=== PATIENT | female | born 1990 | race Caucasian/White ===

== ENCOUNTER 2022-01-30 15:49 | Outpatient (CLI) | payer BC, SELFPAY ==
[2022-01-30 17:03] LABS: NATERA MAILED SPECIMEN
== END 2022-01-30 23:59 | disposition home or self-care (01) ==
PROVIDERS: Referring Provider Obstetrics & Gynecology; Visit Provider Obstetrics & Gynecology
DX: Z13.79 Encounter for other screening for genetic and chromosomal anomalies (principal)
CPT/HCPCS: 36415

== ENCOUNTER 2022-04-09 09:39 | Day surgery (SDC) | payer BC, SELFPAY ==
[2022-04-08 09:14] LABS: Hematocrit 38.3 % (37-47); Hemoglobin 12.8 g/dL (12.0-15.0); Mean Corp Hgb Conc 33.4 g/dL (32-36); Mean Corpuscular Hgb 30.3 pg (27.0-32.0); Mean Corpuscular Volume 90.5 fL (81-99); Mean Platelet Vol. 10.3 fl (6.2-12.0); Platelet Count 196 K/mm3 (150-450); RBC Distribution Width CV 11.9 % (11.6-14.6); RBC Distribution Width SD 39.6 fl (35.1-43.9); Red Blood Count 4.23 M/mm3 (4.2-5.4); White Blood Count 4.7 K/mm3 (4.4-11.0)
--- NOTE | 2022-04-08 16:33 | HP.PCM_ITS ---
History and Physical Date of Admission: 04/09/22 MR#:[id number]: MONSTER MIRELESep #:[id number] Provider:Dr. Marysol Brewer, DOAge/Sex: 31/F [facility] Vital Signs 03/19/22 11:07 Height 5 ft 4 in Weight: 123 lb BMI 21.1 BP 107/67 Intake Visit Reasons: diag. lap. possible lysis of adhesions IUD insert Program Officer Required: No Is patient in pain?: No Allergies No Known Allergies Allergy (Verified 03/19/22 11:08) Medications elagolix 150 mg tablet 150 mg PO DAILY 01/11/22 [History Confirmed 03/19/22] ibuprofen 800 mg tablet 800 mg PO Q8H 7 Days #21 tab 03/19/22 [Rx Confirmed 03/19/22] oxycodone-acetaminophen 5 mg-325 mg tablet 1 tab PO Q4H PRN 3 Days #18 tab 03/19/22 [Rx Confirmed 03/19/22] Post menopausal: No Patient : No : No [facility] Medical History Genetic testing Surgical History S/P wisdom tooth extraction Family History Father Hypertension Grandmother Breast cancer great aunt Social History Smoking Status: Never smoker alcohol intake: never substance use type: does not use caffeine: Yes what type of physical activity do you participate in: none seatbelt use: always do you feel safe at home: Yes additional social history: - Yony JEFFERSON diag. lap. possible lysis of adhesions IUD insert Details: MONSTER MIRELES is a 31 year old who presents for follow up discussion about endometriosis treatment. She has her partner here today to go through some options. She is most interested in trying an IUD and undergoing a laparoscopic possible resection of endometriosis. Pregancy History 2 Elective abortions Hx Para 2 Spontaneous abortions Hx # Term Pregnancies Ectopic pregnancies Hx # Pregnancies Multiple births # of living children Past Pregnancies Del. Date Name GA/Weeks Outcome Route Bth Weight Infant Gen [facility] Unknown Jany Unknown Claudio ROS Const ROS Unobtainable: All systems reviewed & are unremarkable except as noted in H Resp Resp: Reports system reviewed and no additional complaints, except as documented; Denies cough GI GI: Reports as per HPI Psych Psych: Reports system reviewed and no additional complaints, except as documented Exam Const General: cooperative, healthy appearing, comfortable and no acute distress Resp Effort & Inspection: normal respiratory effort Skin General: no rashes or lesions noted Psych Appearance: grossly normal Speech and Movement: speech and movement normal Coding Level of Care Code Off vis,est,level 3 Diagnoses Genetic testing Z13.79 Menorrhagia N92.0 Endometriosis N80.9 Assessment and Plan Assessment and Plan (1) Genetic testing: Status: Acute Comment: Empower negative (2) Menorrhagia: Status: Acute (3) Endometriosis: Status: Acute Medications: New: oxycodone-acetaminophen 5-325 mg (Percocet) 1 TAB PO Q4H 3 days PRN 18 tabs 0RF pain N92.0, N80.9 Plan - Dr. Marysol Brewer DO: After discussing the patient's diagnosis and treatment plan options, patient wishes to proceed with surgical management. I have discussed with the patient the risks, benefits, and alternatives of the procedure which include but are not limited to risks of anesthesia, bleeding, infection, possible damage to bowel, bladder, or surrounding vasculature which could lead to additional surgery to evaluate any complications. Patient agrees to procedure and wishes to proceed. ACOG/uptodate references given for additional information regarding procedure. plan to proceed with diagnostic laparoscopy, possible fulguration of endometriosis or lysis of adhesions and placement of mirena IUD. Plan Details Other Medications: New: ibuprofen 800 mg PO Q8H 7 days 21 tabs 0RF UPDATE- I have seen the patient and performed any clinically relevant updates to the history and physical exam. Mraysol Brewer DO
[2022-04-09 10:03] VITALS: BP 103/65; PULSE 64; RESP 18; TEMP 37.1; O2SAT 100; BMI 20.8
[2022-04-09 10:07] LABS: Internal QC Validated? YES +Cl - CLEAR BKGD; Pregnancy, Urine Negative Negative
[2022-04-09] MEDS: Lactated Ringers 1,000 ML 100 ML IV (10:10)
--- NOTE | 2022-04-09 10:12 | PCM.DC ---
Discharge Instructions Diet Discharge Diet: No restrictions Activity Discharge Activity: Return to Normal Activity, May Not Drive (for two weeks or while taking narcotic pain medications.), May Shower and May Take a Tub Bath (in 7 days) May resume sexual activity in: 1 week Weight Bearing Status: Full weight bearing Dressing / Incision Call your doctor if you observe: Using more than 1 pad per hour, Shortness of breath, Chest pain and Uncontrolled pain Suture Line Care: Avoid Pulling/Pushing and Avoid Pinching/Bending Remove Dressing in: 1 week (if present) Cleanse incision/area with: Soap & Water and Keep Dressing Clean & Dry Follow Up Care Please Follow Up With: Marysol Brewer DO When: Call to make an appointment with your doctor for a follow up incision check in 1-2 weeks. Test Results: Test results from this visit will be discussed in further detail at your follow-up appointment, if applicable. Discharge Plan Admission Primary Reason for Your Visit: laparoscopy and insertion of IUD Attending Provider: Marysol Brewer Primary Care Provider: Care Physician,Meena Primary Instructions Patient Instructions: IUD, Endometriosis Lap Tx Dc Discharge Orders/Prescriptions Prescriptions: Continued Orilissa 150 mg tablet 150 mg PO DAILY RF: 0 multivitamin Tablet 1 tab PO DAILY RF: 0 loratadine [Claritin] 10 mg Tablet 10 mg PO DAILY PRN (Reason: ALLERGIES) RF: 0 Referrals / Follow Up: Care Physician,No Primary [Primary Care Provider] - Disposition Disposition (needs filled in before D/C Order can be placed): Home, Self Care
[2022-04-09] MEDS: Lactated Ringers 1,000 ML 15 ML IV (10:20)
[2022-04-09] MEDS: Bupivacaine Mpf 0.5% 30 ML VIAL (10:55)
--- NOTE | 2022-04-09 11:03 | OP.PCM_ITS ---
Problems Associated Problem List Diagnoses (1) Endometriosis: (2) Menorrhagia: Report of Operation Date of Procedure: 04/09/22 Pre-Operative Diagnosis: pelvic pain, suspected endometriosis Post-Operative Diagnosis: pelvic pain, suspected endometriosis Surgery/Procedure Performed:: diagnostic laparoscopy, placement of mirena intrauterine device Description of Surgical Findings:: normal uterus , tubes, and ovaries. normal cul-de-sac and uterine ligaments. no signs of endometriosis. normal appearing appendix Surgeon: Marysol Brewer bodywork therapist: Lauren Franco Type of Anesthesia: General Anesthesiologist: Gregg Hernandez Special Medications: none Specimen's removed: none Drains: none Estimated Blood Loss (mL): 3 cc Fluids Replaced: 700cc Description of Procedure: Patient was taken in the operating room and was placed under general anesthesia was prepped and draped in normal sterile fashion in the dorsal lithotomy position. Bladder was drained of clear urine and SCDs were on preoperatively. Uterus was sounded and a uterine manipulator was placed after dilating. Attention was then paid to the abdominal portion of the procedure. The umbilicus was injected with Marcaine and after a 5 mm incision was made a 5mm torcar was inserted under direct visualization using the 5 mm laparoscope. The Abdomen was insufflated with CO2 gas. The Uterus was well visualized and bilateral fallopian tubes and ovaries were identified and found to be free of endometriosis. The cul-de-sac and all uterine ligaments were found to be free of endometriosis. The Liver and upper abdomen were visualized notably within normal limits and no other gross abnormalities were seen in the abdomen. The Appendix was also noted to be normal. All instruments removed from the abdomen after gas was desufflated. Port sites were closed with 3-0 Monocryl Steri's and op sites were applied. The uterine manipulator was removed and the single toothed tenaculum was left inplace. The retroverted uterus was then measured to 8 cm. The mirena IUD was placed without difficulty. The strings were trimmed at 3 cm from the cervix. All instruments removed from the vagina and patient was awoken and taken recovery in stable condition. Complications none Admit VTE Documentation VTE Present on Admission: Yes VTE Mechan Device Prophylaxis: SCD's VTE Pharm Prophylaxis ordered?: No Reason prophylaxis not ordered:: Treatment Not Indicated Multi Select Codes Urinary/Genital Urinary/Genital CPT Codes: 31302 Insert IUD and Other Procedure See Report (diagnostic laparoscopy)
[2022-04-09 11:15] VITALS: BP 103/65; BP 112/91; PULSE 81; RESP 16; TEMP 36.1; O2SAT 100
[2022-04-09 11:30] VITALS: BP 103/65; BP 95/80; PULSE 76; RESP 16; O2SAT 100
--- NOTE | 2022-04-09 11:31 | SUR.PHASEI ---
Patient is tearful after surgery. 'I am just happy to be awake. This nurse provides emotional support.
[2022-04-09 11:45] VITALS: BP 103/65; BP 107/79; PULSE 66; RESP 16; O2SAT 99
[2022-04-09 11:54] VITALS: BP 103/65; BP 107/73; PULSE 60; RESP 16; TEMP 36.4; O2SAT 100
[2022-04-09 12:20] VITALS: BP 103/65
== END 2022-04-09 12:42 | disposition home or self-care (01) ==
LOC: SDC 09:41 → AC 09:43
PROVIDERS: Referring Provider Obstetrics & Gynecology; Visit Provider Obstetrics & Gynecology
PROC: (CPT 49320; principal; 2022-04-09 10:50)
DX: N92.0 Excessive and frequent menstruation with regular cycle (principal); Z20.822 Contact with and (suspected) exposure to COVID-19
CPT/HCPCS: 49320; 58300; 36415; 81025; 85027; 86850; 86900; 86901; 87426; C9803; J7120; J2405

== ENCOUNTER → 2022-06-28 | Outpatient (CLI) | payer BC, SELFPAY ==
--- NOTE | 2022-06-28 11:16 | US_ITS ---
INDICATION: IUD placement EXAMINATION: Ultrasound US Pelvis Non OB Complete With Transvaginal Imaging TECHNIQUE: Transabdominal and transvaginal pelvic ultrasound was performed. Grayscale, spectral waveform, and color flow Doppler evaluation of the adnexa. COMPARISON: None. FINDINGS: UTERUS: Anteverted. The uterus measures 7.9 x 6.0 x 4.7 cm. There is no uterine mass. The endometrial stripe measures 5 mm in AP diameter which is within normal limits. An IUD appears to be in appropriate position within the fundal endometrium. RIGHT OVARY: 3.7 x 2.5 x 2.4 cm. Non-enlarged, normal echogenicity. There is normal arterial inflow and venous outflow present in the right ovary. No adnexal mass. LEFT OVARY: 3.0 x 2.2 x 2.2 cm. Non-enlarged, normal echogenicity. There is normal arterial inflow and venous outflow present in the left ovary. No adnexal mass. FREE FLUID: Trace likely physiologic free fluid. US/Pelvic (Non ) IMPRESSION: Unremarkable pelvic ultrasound. Electronically Signed: Joaquim Leos, at 12:29 EDT ,
--- NOTE | 2022-06-28 11:16 | US_ITS ---
INDICATION: IUD placement EXAMINATION: Ultrasound US Pelvis Non OB Complete With Transvaginal Imaging TECHNIQUE: Transabdominal and transvaginal pelvic ultrasound was performed. Grayscale, spectral waveform, and color flow Doppler evaluation of the adnexa. COMPARISON: None. FINDINGS: UTERUS: Anteverted. The uterus measures 7.9 x 6.0 x 4.7 cm. There is no uterine mass. The endometrial stripe measures 5 mm in AP diameter which is within normal limits. An IUD appears to be in appropriate position within the fundal endometrium. RIGHT OVARY: 3.7 x 2.5 x 2.4 cm. Non-enlarged, normal echogenicity. There is normal arterial inflow and venous outflow present in the right ovary. No adnexal mass. LEFT OVARY: 3.0 x 2.2 x 2.2 cm. Non-enlarged, normal echogenicity. There is normal arterial inflow and venous outflow present in the left ovary. No adnexal mass. FREE FLUID: Trace likely physiologic free fluid. US/Transvaginal Non- IMPRESSION: Unremarkable pelvic ultrasound. Electronically Signed: Joaquim Leos, at 12:29 EDT ,
== END | disposition home or self-care (01) ==
LOC: US 11:15
PROVIDERS: Referring Provider Obstetrics & Gynecology; Visit Provider Obstetrics & Gynecology
DX: N39.9 Disorder of urinary system, unspecified (principal)
CPT/HCPCS: 76830; 76856

== ENCOUNTER → 2024-04-09 | Outpatient (CLI) | payer OTHER, SELFPAY ==
[2024-04-13 15:08] LABS: ANTINUCLEAR ANTIBODIES DIRECT Negative (Negative)
== END | disposition home or self-care (01) ==
PROVIDERS: Referring Provider Obstetrics & Gynecology; Visit Provider Obstetrics & Gynecology
DX: Z12.4 Encounter for screening for malignant neoplasm of cervix (principal)
CPT/HCPCS: 36415; 86038; 86225; 86235; 87624; 88175; G0145